=== PATIENT | female | born 1950 | race Caucasian/White ===

== ENCOUNTER 2018-01-10 17:49 | Emergency (ER) | payer OTHER ==
[2018-01-10] MEDS ORDERED: predniSONE 20 MG TAB PO ONE (18:21)
--- NOTE | 2018-01-10 18:25 | EDPHY ---
H & P Stated Complaint: rash on abd Time Seen by Provider: 01/10/18 17:55 - Personal History Current Tetanus/Diphtheria Vaccine: Unsure Current Tetanus Diphtheria and Acellular Pertussis (TDAP): Unsure - Medical/Surgical History Hx Asthma: No Hx Chronic Respiratory Disease: No Hx Diabetes: No Hx Cardiac Disease: No Hx Renal Disease: No Hx Cirrhosis: No Hx Alcoholism: No Hx HIV/AIDS: No Hx Splenectomy or Spleen Trauma: No Other PMH: hypothyroid , High chol Constitutional: Initial Vital Signs Temperature (C) 36.6 C 01/10/18 17:53 Heart Rate 74 01/10/18 17:53 Respiratory Rate 16 01/10/18 17:53 Blood Pressure 156/50 H 01/10/18 17:53 O2 Sat (%) 96 01/10/18 17:53 O2 Delivery Mode Room Air Allergies/Adverse Reactions: No Known Allergies Allergy (Unverified 01/10/18 17:55) Home Medications: Medication Instructions Recorded predniSONE 40 mg PO DAILY #6 tab 01/10/18 Medical Decision Making ED Course/Re-evaluation: CHIEF COMPLAINT: Rash on torso HISTORY OF PRESENT ILLNESS: 67-year-old female visiting from [place]. She had a protein shake yesterday which she has never had before. She had the same thing today and then developed a rash on her trunk and back and somewhat on her left volar arm in the antecubital fossa area. The rash is quite itchy. She denies any difficulty breathing, nausea vomiting, syncope or presyncope. She also denies any swelling of her lips tongue or oral pharynx. She has never had a reaction like this before she does not suspect anything specific except for this protein shake. She has not been exposed to the wilderness or any other reason for this rash. She has had no changes in her medicines. REVIEW OF SYSTEMS: A comprehensive 10 system review of systems is otherwise negative aside from elements mentioned in the history of present illness and medical decision making. PHYSICAL EXAM: HR, BP, O2 Sat, RR. Temp noted General Appearance: Alert, well hydrated, appropriate, and non-toxic appearing. Head: Atraumatic without scalp tenderness or obvious injury Eyes: Pupils equal, round, reactive to light and accommodation, EOMI, no trauma , no injection. Ears: Clear bilaterally, no perforation, normal landmarks Nose: Atraumatic, no rhinorrhea, clear. Throat: There is no erythema or exudates, no lesions, normal tonsils, mucus membranes moist. Neck: Supple, 2+ carotid upstroke, nontender, no lymphadenopathy. Respiratory: No retractions, no distress, no wheezes, and no accessory muscle use. Lungs are clear to auscultation bilaterally. Cardiovascular: Regular rate and rhythm, no murmurs, rubs, or gallops. Bilateral carotid, radial, dorsalis pedis, and posterior tibial pulses intact. Good capillary refill all extremities. Gastrointestinal: Abdomen is soft, nontender, non-distended, no masses, no rebound, no guarding, no peritoneal signs. Musculoskeletal: Normal active ROM of all extremities, atraumatic. Neurological: Alert, appropriate, and interactive. The patient has normal DTRs and non-focal cranial nerves, motor, sensory, and cerebellar exam. Skin: Very mild erythema with a confluence macular rash on the trunk and back and left antecubital fossa. She states that it is slightly better since she has use some Benadryl cream. The rash blanches nicely. It is not palpable. No rashes, good turgor, no nodules on palpation. Past medical history: Hyperlipidemia and hypothyroidism Past surgical history: Noncontributory Family history: Noncontributory Social history: Lives in [place], does not abuse tobacco drugs or alcohol, visiting her sister here, retired DIFFERENTIAL DIAGNOSIS: Includes but is not limited to: Allergic reaction, shingles, topical allergy, systemic allergy, meningococcemia, purpura, petechia MEDICAL DECISION MAKING: This patient has a very mild rash which seems to be associated it least temporarily with a protein shake. She has got some relief with Benadryl. I have asked her to continue taking Benadryl. I will start her on 40 prednisone now and then 40 prednisone for the next 2 days. She will return here if she has any further difficulty and she will avoid the particular protein shake tomorrow. - Data Points Medications Given: Discontinued Medications Prednisone (Prednisone) 40 mg PO EDNOW ONE Stop: 01/10/18 18:22 Last Admin: 01/10/18 18:33 Dose: 40 mg Departure - Departure Disposition: Home, Routine, Self-Care Clinical Impression: Rash Condition: Good Instructions: Acute Rash (ED) Referrals: Audie Lynn MD [Medical Doctor] - As per Instructions Prescriptions: predniSONE 40 mg PO DAILY #6 tab
[2018-01-10 18:37] VITALS: BP 141/77
== END 2018-01-10 18:40 | disposition home or self-care (01) ==
DX: R21 Rash and other nonspecific skin eruption (principal); E03.9 Hypothyroidism, unspecified; E78.5 Hyperlipidemia, unspecified
CPT/HCPCS: J7512